=== PATIENT | male | born 1950 | race Caucasian/White ===

== ENCOUNTER 2018-04-09 15:03 | Day surgery (SDC) | payer MEDICARE, BC ==
[2018-04-09] VITALS (13 sets, daily range): BP systolic 124–168; BP diastolic 63–100
[~2018-04-09] VITALS: Ht 190.5 cm; Wt 83.2 kg
[~2018-04-09 15:03] MED LIST: ASPI-1 PO; LOSA25TA21 PO; PER10325T PO; ROSU10TA PO
[2018-04-09] MEDS ORDERED: AMLO10TA70 PO (15:33)
[2018-04-09] MEDS ORDERED: DICL75TA5 PO (15:33)
[2018-04-09] MEDS ORDERED: LOSA1TAB41 PO (15:33)
[2018-04-09] MEDS ORDERED: NITR0.4T SL (15:33)
[2018-04-09] MEDS ORDERED: LORazepam 0.5 MG tablet PO ONE (15:35)
[2018-04-09] MEDS ORDERED: diphenhydrAMINE 25mg capsule PO ONE (15:35)
[2018-04-09] MEDS ORDERED: LIDOcaine/PRILOcaine 5gm cream TP ONE (15:35)
[2018-04-09] MEDS ORDERED: ASPI81TA52 PO (15:35)
[2018-04-09] MEDS: normal saline 1000ml 1,000 ML IV SCH ×2 (16:03→23:15)
[2018-04-09] MEDS ORDERED: lidocaine 1%/epinephrine 1:100,000 injection 50ml vial ONE (17:39)
[2018-04-09] MEDS ORDERED: midazolam 2 mg/2 ml injection ONE (17:39)
[2018-04-09] MEDS ORDERED: fentaNYL/PF 50MCG/1 ML 2ML syringe ONE (17:39)
[2018-04-09] MEDS ORDERED: iohexol 350MG/ML 100ml bottle IV ONE (17:39)
[2018-04-09] MEDS ORDERED: heparin 1,000unit/ml 10ml vial 10 ML ONE ×2 (19:14→19:33)
[2018-04-09] MEDS ORDERED: verapamil 2.5 mg/ml inj IV ONE (19:14)
[2018-04-09] MEDS ORDERED: nitroGLYCERIN-Tridil 50MG/D5W 250 ML IV ONE (19:14)
[2018-04-09] MEDS ORDERED: LIDOcaine 1% 30ml preserv. free vial ONE (19:15)
[2018-04-09] MEDS ORDERED: iohexol 350 MG/ML 50ML vial IV ONE (19:35)
[2018-04-09] MEDS ORDERED: ticagrelor 90mg tablet ONE (19:40)
[2018-04-09] MEDS ORDERED: proCHLORperazine 10 MG/2 ml inj IV PRN (20:45)
[2018-04-09] MEDS ORDERED: HYDROcodone/acetaminophen 10/325mg tab PO PRN (20:45)
[2018-04-09] MEDS ORDERED: OXAZEpam 15mg capsule PO PRN (20:45)
[2018-04-09] MEDS ORDERED: ondansetron/PF 4mg/2ml inj IV PRN (20:45)
[2018-04-09] MEDS ORDERED: HYDROcodone/acetaminophen 5mg/325mg tablet PO PRN (20:45)
[2018-04-09] MEDS ORDERED: nitroGLYCERIN 0.4mg SUBLingual tab SL PRN (22:00)
[2018-04-10] VITALS (8 sets, daily range): BP systolic 111–156; BP diastolic 65–87
[2018-04-10] MEDS ORDERED: aspirin 81mg tablet.DR PO SCH (08:00)
[2018-04-10] MEDS ORDERED: HYDROchlorothiazide 12.5mg capsule PO SCH (08:00)
[2018-04-10] MEDS ORDERED: losartan 50mg tablet PO SCH (08:00)
[2018-04-10] MEDS ORDERED: amLODIPine 5mg tablet PO SCH (08:00)
[2018-04-10] MEDS ORDERED: ticagrelor 90mg tablet PO SCH (08:15)
[2018-04-10] MEDS ORDERED: ATOR20TA66 PO (08:33)
[2018-04-10] MEDS ORDERED: TICA90TA PO (08:33)
[2018-04-10] MEDS ORDERED: DICLOFENAC 75 MG PO PRN (08:40)
[2018-04-10] MEDS: normal saline 1000ml 1,000 ML IV SCH (09:19)
[2018-04-10 09:34] LABS: ALBUMIN 3.5 G/DL (3.4-5.0); ANION GAP 11 (8-16); BLOOD UREA NITROGEN 18 MG/DL (7-18); BUN/CREATININE RATIO 15.4 (5.4-32.0); CALCIUM 8.7 MG/DL (8.5-10.1); CHLORIDE 106 MMOL/L (99-107); CHOL/HDL RATIO 7.3 (0.00-4.99); CHOLESTEROL 197 MG/DL (0-200); CREATININE 1.17 MG/DL (0.60-1.10); GLUCOSE 164 MG/DL (70-104); HDL CHOLESTEROL 27 MG/DL (35-60); LDL CHOLESTEROL 139 MG/DL (50-100); POTASSIUM 3.5 MMOL/L (3.5-5.1); SODIUM 142 MMOL/L (135-145); TOTAL CARBON DIOXIDE 25.3 MMOL/L (24-32); TRIGLYCERIDES 219 MG/DL (20-135); eGFR 62 ML/MIN
== END 2018-04-10 11:32 | disposition home or self-care (01) ==
LOC: SSTAY O 15:03 → PCU 3S 22:04 → SSTAY O 04-10 11:32
PROVIDERS: ATTEND Internal Medicine Interventional Cardiology
DX: I25.118 Atherosclerotic heart disease of native coronary artery with other forms of angina pectoris (principal); I10 Essential (primary) hypertension; G43.909 Migraine, unspecified, not intractable, without status migrainosus; M19.90 Unspecified osteoarthritis, unspecified site; Z87.891 Personal history of nicotine dependence; Z90.49 Acquired absence of other specified parts of digestive tract; Z87.442 Personal history of urinary calculi; Z88.5 Allergy status to narcotic agent; Z79.82 Long term (current) use of aspirin; Z79.1 Long term (current) use of non-steroidal anti-inflammatories (NSAID); Z88.8 Allergy status to other drugs, medicaments and biological substances; Z79.899 Other long term (current) drug therapy; Z98.890 Other specified postprocedural states
CPT/HCPCS: 36415; 80048; 80061; 87070; 93454; 99152; 99153; A6257; A6258; A6402; C1769; C1874; C9600; J1644; J2250; J3010; J3490; J7030; Q0163; Q9967